=== PATIENT | male | born 1960 | race Caucasian/White ===

== ENCOUNTER 2020-06-12 06:33 | Inpatient (IN) | payer OTHER ==
[2020-06-05 15:08] LABS: BASOPHILS # (AUTO) 0.1 X10'3 (0-0.2); BASOPHILS % (AUTO) 1.1 % (0-1); EOSINOPHILS # (AUTO) 0.3 X10'3 (0-0.9); EOSINOPHILS % (AUTO) 2.7 % (0-6); LYMPHOCYTES # (AUTO) 2.2 X10'3 (1.1-4.8); LYMPHOCYTES % (AUTO) 22.2 % (21-51); MEAN CORPUSCULAR HEMOGLOBIN 32.5 PG (27.0-31.0); MEAN CORPUSCULAR HGB CONC 32.7 g/dL (33.0-36.5); MEAN CORPUSCULAR VOLUME 99.3 FL (78-98); MEAN PLATELET VOLUME 8.4 FL (7.4-10.4); MONOCYTES # (AUTO) 0.6 X10'3 (0-0.9); MONOCYTES % (AUTO) 6.4 % (2-12); NEUTROPHILS # (AUTO) 6.6 X10'3 (1.8-7.7); NEUTROPHILS % (AUTO) 67.6 % (42-75); PRE OP HEMATOCRIT 38.2 % (42.0-52.0); PRE OP HEMOGLOBIN 12.5 g/dL (14.0-17.9); PRE OP PLATELET COUNT 311 X10'3 (140-440); RED BLOOD COUNT 3.85 X10'6 (4.70-6.10); RED CELL DISTRIBUTION WIDTH 15.7 % (11.5-14.5)
[2020-06-05 15:22] LABS: ALKALINE PHOSPHATASE 58 IU/L (46-116); BLOOD UREA NITROGEN 38 MG/DL (7-18); BUN/CREATININE RATIO 27.5 (5.4-32.0); CALCIUM 8.7 MG/DL (8.5-10.1); CHLORIDE 108 MMOL/L (99-107); CREATININE 1.38 MG/DL (0.60-1.10); PRE OP ALT 16 U/L (30-65); PRE OP ANION GAP 11 (8-16); PRE OP AST 11 U/L (10-37); PRE OP BILIRUB, TOTAL 0.3 MG/DL (0.0-1.0); PRE OP GLUCOSE 123 MG/DL (70-104); PRE OP SODIUM 143 MMOL/L (135-145); TOTAL CARBON DIOXIDE 24.2 MMOL/L (24-32); TOTAL PROTEIN 7.9 G/DL (6.4-8.2); eGFR 53 ML/MIN
[2020-06-12] VITALS (11 sets, daily range): BP systolic 117–176; BP diastolic 52–94
[~2020-06-12] VITALS: Ht 180.3 cm; Wt 151.0 kg
[~2020-06-12 06:33] MED LIST: ACET-2119 PO; ALLO100T PO; AMLO10TA13 PO; CHLO25TA10 PO; LOSA50TA3 PO; PHEN1CPM4 PO; SIMV-42 PO; albuterol 2.5 MG/3 ML nebule NEB ONE; ceFAZolin/D5W- 1GM premix 50 ML IV ONE; cefazolin/dext.iso 2gm/100ml 100 ML IV ONE; famotidine 20mg tablet PO ONE; ringers solution, lacted 1,000 ML IV SCH; tranexamic acid 650mg tablet PO ONE; vancomycin 1,500 MG in NS 300ml IV soln IV ONE
--- NOTE | 2020-06-12 07:28 | NUR ---
VANCO WONT SCAN
[2020-06-12] MEDS ORDERED: ketorolac trometh. 30mg/ml inj. ONE (10:23)
[2020-06-12] MEDS ORDERED: ROPIVAcaine 0.5% (5mg/ml) 30ml vial ONE ×2 (10:23→10:40)
[2020-06-12] MEDS ORDERED: sevoflurane 250ml liquid IH ONE (10:37)
[2020-06-12] MEDS ORDERED: rocuronium 10mg/ml inj IV ONE (10:37)
[2020-06-12] MEDS ORDERED: fentaNYL/PF 50MCG/1 ML 2ML syringe ONE (10:39)
[2020-06-12] MEDS ORDERED: MIDAZolam 1 MG/ML 5ML VIAL ONE (10:40)
[2020-06-12] MEDS ORDERED: propofol inj 20 ML IV ONE (10:40)
[2020-06-12] MEDS ORDERED: ROPIVAcaine 0.2% (10 MG/5 ML) BOLUS INJECTION INTERSCALE PRN (12:05)
[2020-06-12] MEDS ORDERED: ringers solution, lacted 1,000 ML IV SCH (12:05)
[2020-06-12] MEDS ORDERED: ROPIVAcaine 0.2%/PF PUMP/bolus 545 ML INTERSCALE SCH (12:05)
[2020-06-12] MEDS ORDERED: ondansetron/PF 4mg/2ml inj IV PRN ×2 (12:05→13:10)
[2020-06-12] MEDS ORDERED: morphine 4 MG/ML inj SYRINge IV PRN (12:05)
[2020-06-12] MEDS ORDERED: meperidine/PF 25mg/ml syringe IV PRN ×3 (12:05)
[2020-06-12] MEDS ORDERED: morphine 2 MG/ML inj. syringe IV PRN (12:05)
[2020-06-12] MEDS ORDERED: proCHLORperazine 10 MG/2 ml inj IV PRN (12:05)
[2020-06-12] MEDS ORDERED: glycopyrrolate 0.2mg/ml inj ONE (12:47)
[2020-06-12] MEDS ORDERED: neostigmine methylsulfate 1 MG/ML 10ml vial ONE (12:47)
--- NOTE | 2020-06-12 13:00 | NUR ---
ADMITTED TO PACU FROM OR ACCOMPANIED BY ANESTHESIA. INTIAL PHYSICAL ASSESSMENT DONE AND RECORDED. REPORT RECEIVED FROM ANESTHESIA.
[2020-06-12] MEDS ORDERED: diphenhydrAMINE 25mg capsule PO PRN ×2 (13:10)
[2020-06-12] MEDS ORDERED: HYDROmorphone inj. 0.5 MG/0.5 ML DISP.SYRIN IV PRN (13:10)
[2020-06-12] MEDS ORDERED: oxyCODONE IR 5mg (immed. release) tablet PO PRN (13:10)
[2020-06-12] MEDS: potassium cl 20mEq in 1/2 NS 1,000 ML IV SCH ×2 (13:10→20:25)
[2020-06-12] MEDS ORDERED: acetaminophen 325mg tablet PO PRN (13:10)
[2020-06-12] MEDS ORDERED: bisacodyl 10mg suppository rectal RC PRN (13:10)
[2020-06-12] MEDS ORDERED: HYDROmorphone 1 mg/ml syringe IV PRN (13:10)
[2020-06-12] MEDS ORDERED: magnesium hydroxide 30ml (MOM) UD suspension PO PRN (13:10)
--- NOTE | 2020-06-12 14:00 | NUR ---
PACU DISCHARGE CRITERIA MET, REPORT GIVEN TO FLOOR. DENIES PAIN OR DISCOMFORT, TRANSFERRED TO ROOM IN STABLE GOOD CONDITION.
--- NOTE | 2020-06-12 14:12 | NUR ---
On the unit from OR
[2020-06-12] MEDS: acetaminophen 325mg tablet PO SCH ×2 (14:23→20:25)
[2020-06-12] MEDS: ceFAZolin/D5W- 1GM premix 50 ML IV SCH (16:01)
--- NOTE | 2020-06-12 18:19 | NUR ---
Problems reprioritized. Patient report given, questions answered & plan of care reviewed with Ivett LANE.
[2020-06-12] MEDS ORDERED: vancomycin/NS 1 GM ADD-VANTAGE 250 ML IV SCH (20:00)
[2020-06-12] MEDS ORDERED: benzocaine/menthol oral lozeng 1 EACH BOX MM PRN (20:40)
[2020-06-12] MEDS ORDERED: atorvastatin 10mg tablet PO SCH (21:00)
[2020-06-12] MEDS ORDERED: allopurinol 100mg tablet PO SCH (21:00)
[2020-06-12] MEDS ORDERED: sennosides 8.6mg tablet PO SCH (21:00)
[2020-06-13] MEDS: acetaminophen 325mg tablet PO SCH ×3 (01:24→15:05)
[2020-06-13] MEDS: oxyCODONE IR 5mg (immed. release) tablet PO PRN ×3 (01:24→13:09)
[2020-06-13] MEDS: potassium cl 20mEq in 1/2 NS 1,000 ML IV SCH ×2 (01:25→13:10)
[2020-06-13] MEDS: ceFAZolin/D5W- 1GM premix 50 ML IV SCH (01:25)
[2020-06-13 02:26] VITALS: BP 161/77
[2020-06-13 06:00] VITALS: BP 139/60
--- NOTE | 2020-06-13 06:34 | NUR ---
Patient in room ORTHO 4010B. I have received report from DOMINGO Root and had the opportunity to ask questions and assume patient care.
--- NOTE | 2020-06-13 07:47 | NUR ---
barcode did not scan into [email or web address] checked medication prior to administration
[2020-06-13] MEDS ORDERED: PHENTERMINE PO SCH (08:00)
[2020-06-13] MEDS ORDERED: losartan 50mg tablet PO SCH (08:00)
[2020-06-13] MEDS ORDERED: TOPIRAMATE PO SCH (08:00)
[2020-06-13] MEDS ORDERED: chlorthalidone 25mg tablet PO SCH (08:00)
[2020-06-13] MEDS ORDERED: amLODIPine 5mg tablet PO SCH (08:00)
[2020-06-13] MEDS ORDERED: aspirin 325mg tablet PO SCH (08:30)
[2020-06-13 09:45] LABS: BASOPHILS # (AUTO) 0.1 X10'3 (0-0.2); BASOPHILS % (AUTO) 0.8 % (0-1); EOSINOPHILS # (AUTO) 0.2 X10'3 (0-0.9); EOSINOPHILS % (AUTO) 2.2 % (0-6); HEMATOCRIT 36.7 % (42.0-52.0); LYMPHOCYTES # (AUTO) 1.6 X10'3 (1.1-4.8); LYMPHOCYTES % (AUTO) 15.9 % (21-51); MEAN CORPUSCULAR HEMOGLOBIN 32.6 PG (27.0-31.0); MEAN CORPUSCULAR HGB CONC 32.8 g/dL (33.0-36.5); MEAN CORPUSCULAR VOLUME 99.5 FL (78-98); MEAN PLATELET VOLUME 8.4 FL (7.4-10.4); MONOCYTES # (AUTO) 0.5 X10'3 (0-0.9); MONOCYTES % (AUTO) 4.9 % (2-12); NEUTROPHILS # (AUTO) 7.6 X10'3 (1.8-7.7); NEUTROPHILS % (AUTO) 76.2 % (42-75); PLATELET COUNT 213 X10'3 (140-440); RED BLOOD COUNT 3.69 X10'6 (4.70-6.10); RED CELL DISTRIBUTION WIDTH 15.6 % (11.5-14.5)
[2020-06-13 09:54] LABS: ANION GAP 9 (8-16); CHLORIDE 104 MMOL/L (99-107); POTASSIUM 4.1 MMOL/L (3.5-5.1); SODIUM 138 MMOL/L (135-145); TOTAL CARBON DIOXIDE 25.3 MMOL/L (24-32)
[2020-06-13 10:00] VITALS: BP 116/44
[2020-06-13] MEDS ORDERED: ASPI-1 PO (11:22)
--- NOTE | 2020-06-13 14:04 | NUR ---
Joint consult: Pt s/p reverse right TSA. Currently on a CHO controlled diet and eating well with documented 100% PO intake. Pt with active discharge orders, no nutrition intervention implemented at this time. Will continue to follow and monitor need for nutrition intervention if pt does not discharge. Addendum: 06/13/20 at [address] Amended: Links added.
--- NOTE | 2020-06-13 15:50 | NUR ---
DC INSTRUCTIONS GIVEN, QUESTIONS ANSWERED. IV REMOVED, CANULA INTACT, NO COMPLICATIONS. ASSISTED PT WITH DRESSING GATHERED BELONGINGS. WHEELED PT DOWN TO PRIVATE VEHICLE IN STABLE CONDITION
[2020-06-14] MEDS ORDERED: acetaminophen 325mg tablet PO PRN (13:10)
--- NOTE | 2020-06-14 14:02 | NUR ---
CASE MANAGEMENT DISCHARGE FOLLOW UP: T/c to pt, no answer, left message requesting callback. Addendum: 06/14/20 at 1520 by Raquel Hair RN [id number] Spoke with pt via telephone. Reports that he is doing pretty good, states that pain is well controlled with pain medication and cool packs; denies CP, SOB, fever/chills, dizziness. Verbalizes understanding of s/sx requiring further evaluation/emergent assistance. Verbalizes understanding of medications. Verbalizes compliance with MD discharge instructions. Verbalizes understanding of the importance in making/keeping follow-up appointments, has post-op appointment scheduled with surgeon. States no further questions/concerns at this time.
== END 2020-06-13 15:00 | disposition home or self-care (01) | DRG 483 ==
LOC: PAS IN 06:33 → UNDOADMIN 06:33 → PAS IN 13:07 → ORTHO 4S 14:05 → UNDODISIN 06-13 15:00
PROVIDERS: ADMIT Orthopaedic Surgery; ATTEND Orthopaedic Surgery
PROC: 0LS30ZZ Reposition Right Upper Arm Tendon, Open Approach (ICD-10-PCS; 2020-06-12)
PROC: 3E0T3BZ Introduction of Anesthetic Agent into Peripheral Nerves and Plexi, Percutaneous Approach (ICD-10-PCS; 2020-06-12)
PROC: 0RRJ00Z Replacement of Right Shoulder Joint with Reverse Ball and Socket Synthetic Substitute, Open Approach (ICD-10-PCS; principal; 2020-06-12 10:37)
DX: M19.011 Primary osteoarthritis, right shoulder (principal); Z68.43 Body mass index [BMI] 50.0-59.9, adult; D50.0 Iron deficiency anemia secondary to blood loss (chronic); E66.01 Morbid (severe) obesity due to excess calories; M75.121 Complete rotator cuff tear or rupture of right shoulder, not specified as traumatic; M75.21 Bicipital tendinitis, right shoulder; Z88.1 Allergy status to other antibiotic agents; Z88.8 Allergy status to other drugs, medicaments and biological substances
CPT/HCPCS: 36415; 80051; 80053; 82948; 85025; 87081; 97110; 97161; 97530; 97535; A4565; A4618; A7000; C1776; G0378; J0690; J1885; J2250; J2704; J2710; J2795; J3010; J3370; J3480; J3490; J7040; J7120; U0003

== ENCOUNTER 2020-08-03 16:26 | Emergency (ER) | payer OTHER ==
[~2020-08-03] VITALS: Ht 180.3 cm; Wt 111.2 kg
[~2020-08-03 16:26] MED LIST changes: -albuterol 2.5 MG/3 ML nebule NEB ONE; -ceFAZolin/D5W- 1GM premix 50 ML IV ONE; -cefazolin/dext.iso 2gm/100ml 100 ML IV ONE; -famotidine 20mg tablet PO ONE; -ringers solution, lacted 1,000 ML IV SCH; -tranexamic acid 650mg tablet PO ONE; -vancomycin 1,500 MG in NS 300ml IV soln IV ONE
[2020-08-03 21:42] LABS: BASOPHILS # (AUTO) 0.1 X10'3 (0-0.2); BASOPHILS % (AUTO) 0.6 % (0-1); EOSINOPHILS # (AUTO) 0.4 X10'3 (0-0.9); EOSINOPHILS % (AUTO) 3.7 % (0-6); HEMATOCRIT 37.1 % (42.0-52.0); HEMOGLOBIN 12.4 g/dl (14.0-17.9); LYMPHOCYTES % (AUTO) 19.8 % (21-51); MEAN CORPUSCULAR HEMOGLOBIN 32.9 PG (27.0-31.0); MEAN CORPUSCULAR HGB CONC 33.3 g/dL (33.0-36.5); MEAN CORPUSCULAR VOLUME 98.8 FL (78-98); MEAN PLATELET VOLUME 7.7 FL (7.4-10.4); MONOCYTES # (AUTO) 0.5 X10'3 (0-0.9); MONOCYTES % (AUTO) 5.2 % (2-12); NEUTROPHILS # (AUTO) 7.3 X10'3 (1.8-7.7); NEUTROPHILS % (AUTO) 70.7 % (42-75); PLATELET COUNT 311 X10'3 (140-440); RED BLOOD COUNT 3.76 X10'6 (4.70-6.10); RED CELL DISTRIBUTION WIDTH 15.9 % (11.5-14.5); WHITE BLOOD COUNT 10.3 X10'3 (4.5-11.0)
[2020-08-03 22:00] LABS: ALANINE AMINOTRANSFERASE 21 U/L (12-78); ALKALINE PHOSPHATASE 78 IU/L (46-116); ANION GAP 11 (8-16); ASPARTATE AMINO TRANSFERASE 11 U/L (10-37); BILIRUBIN,TOTAL 0.5 MG/DL (0.1-1.0); BLOOD UREA NITROGEN 22 MG/DL (7-18); BUN/CREATININE RATIO 13.4 (5.4-32.0); CALCIUM 8.8 MG/DL (8.5-10.1); CHLORIDE 110 MMOL/L (99-107); CREATININE 1.64 MG/DL (0.60-1.10); GLUCOSE 126 MG/DL (70-104); POTASSIUM 4.1 MMOL/L (3.5-5.1); SODIUM 145 MMOL/L (135-145); TOTAL CARBON DIOXIDE 23.8 MMOL/L (24-32); eGFR 43 ML/MIN
--- NOTE | 2020-08-03 23:35 | NUR ---
Swelling and erythema to right, 2nd toe
[2020-08-04] MEDS ORDERED: levoFLOXACIN-Levaquin 500mg/D5 100 ML IV ONE (00:35)
[2020-08-04] MEDS ORDERED: LEVO500T89 PO (01:23)
[2020-08-04] MEDS ORDERED: DOXY100C76 PO (01:23)
[2020-08-04 01:44] VITALS: BP 146/81
== END 2020-08-04 02:11 | disposition home or self-care (01) ==
LOC: ER 16:26
DX: L97.512 Non-pressure chronic ulcer of other part of right foot with fat layer exposed (principal); L03.031 Cellulitis of right toe; E11.9 Type 2 diabetes mellitus without complications; F17.200 Nicotine dependence, unspecified, uncomplicated; Z72.89 Other problems related to lifestyle; Z88.1 Allergy status to other antibiotic agents; Z88.8 Allergy status to other drugs, medicaments and biological substances; Z79.2 Long term (current) use of antibiotics; Z79.899 Other long term (current) drug therapy
CPT/HCPCS: 36415; 73660; 80053; 85025; 85651; 96365; 99284; J1956

== ENCOUNTER 2021-10-08 10:00 | Inpatient (IN) | payer OTHER ==
[~2021-10-08] VITALS: Ht 180.3 cm; Wt 139.0 kg
[~2021-10-08 10:00] MED LIST changes: -ACET-2119 PO; -CHLO25TA10 PO; -PHEN1CPM4 PO; -SIMV-42 PO
[2021-10-17] MEDS ORDERED: SEMA1PEN3 SQ (10:30)
[2021-10-17] MEDS ORDERED: MULT-1085 PO (10:30)
[2021-10-17] MEDS ORDERED: ATOR20TA66 PO (10:30)
[2021-10-17] MEDS ORDERED: TOPI25TA15 PO (10:30)
[2021-10-17 11:13] LABS: BASOPHILS # (AUTO) 0.1 X10'3 (0-0.2); BASOPHILS % (AUTO) 0.9 % (0-1); EOSINOPHILS # (AUTO) 0.5 X10'3 (0-0.9); EOSINOPHILS % (AUTO) 4.7 % (0-6); LYMPHOCYTES # (AUTO) 2.3 X10'3 (1.1-4.8); LYMPHOCYTES % (AUTO) 23.7 % (21-51); MEAN CORPUSCULAR HEMOGLOBIN 32.1 PG (27.0-31.0); MEAN CORPUSCULAR HGB CONC 33.6 g/dL (33.0-36.5); MEAN CORPUSCULAR VOLUME 95.5 FL (78-98); MEAN PLATELET VOLUME 7.6 FL (7.4-10.4); MONOCYTES # (AUTO) 0.4 X10'3 (0-0.9); MONOCYTES % (AUTO) 4.3 % (2-12); NEUTROPHILS # (AUTO) 6.4 X10'3 (1.8-7.7); NEUTROPHILS % (AUTO) 66.4 % (42-75); PRE OP HEMATOCRIT 37.6 % (42.0-52.0); PRE OP HEMOGLOBIN 12.6 g/dL (14.0-17.9); PRE OP PLATELET COUNT 262 X10'3 (140-440); RED BLOOD COUNT 3.94 X10'6 (4.70-6.10); RED CELL DISTRIBUTION WIDTH 15.2 % (11.5-14.5)
[2021-10-17 11:19] LABS: HEMOGLOBIN A1C 5.4 % (4.5-6.2)
[2021-10-17 11:28] LABS: ALBUMIN 4.1 G/DL (3.4-5.0); ALBUMIN/GLOBULIN RATIO 1.1 (1.1-1.5); ALKALINE PHOSPHATASE 61 IU/L (46-116); BLOOD UREA NITROGEN 41 MG/DL (7-18); BUN/CREATININE RATIO 24.3 (5.4-32.0); CALCIUM 8.5 MG/DL (8.5-10.1); CHLORIDE 109 MMOL/L (99-107); CREATININE 1.69 MG/DL (0.60-1.10); PRE OP ALT 21 U/L (30-65); PRE OP ANION GAP 13 (8-16); PRE OP AST 14 U/L (10-37); PRE OP BILIRUB, TOTAL 0.3 MG/DL (0.0-1.0); PRE OP GLUCOSE 96 MG/DL (70-104); PRE OP POTASSIUM 3.8 MMOL/L (3.4-5.1); PRE OP SODIUM 143 MMOL/L (135-145); TOTAL CARBON DIOXIDE 21.2 MMOL/L (24-32); TOTAL PROTEIN 7.7 G/DL (6.4-8.2); eGFR 41 ML/MIN
[2021-10-19] MEDS ORDERED: IBUP-24 PO (11:06)
[2021-10-22] VITALS (21 sets, daily range): BP systolic 107–191; BP diastolic 28–91
[2021-10-22] MEDS ORDERED: ringers solution, lacted 1,000 ML IV SCH ×2 (05:00→15:35)
[2021-10-22] MEDS ORDERED: tranexamic acid 650mg tablet PO ONE (05:30)
[2021-10-22] MEDS ORDERED: famotidine 20mg tablet PO ONE (05:30)
[2021-10-22] MEDS ORDERED: ceFAZolin inj. 2,000 MG in dextrose 5%-water 100 ML IV ONE (05:30)
[2021-10-22] MEDS ORDERED: vancomycin 1,500 MG in NS 300ml IV soln IV ONE (05:30)
[2021-10-22] MEDS ORDERED: ROPIVAcaine 0.5% (5mg/ml) 30ml vial ONE ×2 (13:23→16:45)
[2021-10-22] MEDS ORDERED: ketorolac trometh. 30mg/ml inj. ONE (13:23)
[2021-10-22] MEDS ORDERED: cloNIDine hcl/PF 100mcg/ml inj ONE (14:46)
[2021-10-22] MEDS ORDERED: tetracaine 1% (10mg/ml) pres. free inj. ONE (14:59)
--- NOTE | 2021-10-22 15:00 | NUR ---
CSM INTACT. PEDAL PULSES MARKED WITH AN "X". MUPIROCIN NOT GIVEN TO PT. Addendum: 10/22/21 at 1505 by Medina Coto RN, RN Amended: Links added.
[2021-10-22] MEDS ORDERED: fentaNYL/PF 50MCG/1 ML 2ML syringe ONE (15:13)
--- NOTE | 2021-10-22 15:15 | NUR ---
PT BELONGINGS TAKEN TO RECOVERY. IN THOSE ITEMS WAS A BLACK FRONT WHEEL WALKER WITH SEAT. PT'S MEDICATIONS TAKEN TO THE PHARMACY.
[2021-10-22] MEDS ORDERED: MIDAZolam 1 MG/ML 5ML VIAL ONE (15:30)
[2021-10-22] MEDS ORDERED: ondansetron/PF 4mg/2ml inj IV PRN ×2 (15:35→17:30)
[2021-10-22] MEDS ORDERED: proCHLORperazine 10 MG/2 ml inj IV PRN (15:35)
[2021-10-22] MEDS ORDERED: morphine 2 MG/ML inj. syringe IV PRN (15:35)
[2021-10-22] MEDS ORDERED: meperidine/PF 25mg/ml syringe IV PRN ×3 (15:35)
[2021-10-22] MEDS ORDERED: morphine 4 MG/ML inj SYRINge IV PRN (15:35)
[2021-10-22] MEDS ORDERED: ROPIVAcaine 0.5% (5mg/ml) 30ml vial IJ ONE (16:30)
[2021-10-22] MEDS ORDERED: diphenhydrAMINE 50 mg/ml inj ONE ×2 (16:45→17:12)
[2021-10-22] MEDS ORDERED: propofol inj 40 ML IV ONE (16:45)
[2021-10-22] MEDS ORDERED: dexamethasone sod phosphate 4mg/ml inj. ONE (16:45)
[2021-10-22] MEDS ORDERED: acetaminophen 1,000mg/100ml IV 100 ML IV ONE (16:59)
--- NOTE | 2021-10-22 17:20 | NUR ---
Received from OR via HOSPITAL BED, accompanied by Anesthesiologist DR SOLIS and report given by Anesthesiolgist. PT IS GROGGY BUT RESPONDS TO VERBAL STIMULI. PT PLACED ON BEDSIDE MONITOR, VSS. PT IS IN SR WITH RATE IN LOW 60'S. PT CAME OUT ON RA AND TOLLERATING WELL, O2 SAT > 98%. PT HAS 20G PIV TO LT FA WITH LR INFUSING @100ML/HR ORDERED. PT HAS DRSG TO RT KNEE WITH WRAP IN PLACE WELL PODWER ICE PACK. IT IS CDI. PT HAS DOPPLER PULSES TO BILAT DORSALIS PEDIS WELL POST TIB. PT HAS KAUR IN PLACE WITH STRAW COLORED URINE DRAINING TO GRAVITY. PT DENIES PAIN AT THIS TIME. WILL CONTINUE TO ASSESS.
[2021-10-22] MEDS ORDERED: oxyCODONE IR 5mg (immed. release) tablet PO PRN (17:30)
[2021-10-22] MEDS ORDERED: magnesium hydroxide 30ml (MOM) UD suspension PO PRN (17:30)
[2021-10-22] MEDS ORDERED: HYDROcodone/acetaminophen 10/325mg tab PO PRN (17:30)
[2021-10-22] MEDS ORDERED: HYDROmorphone 1 mg/ml syringe IV PRN (17:30)
[2021-10-22] MEDS ORDERED: diphenhydrAMINE 25mg capsule PO PRN ×2 (17:30)
[2021-10-22] MEDS ORDERED: bisacodyl 10mg suppository rectal RC PRN (17:30)
[2021-10-22] MEDS ORDERED: HYDROmorphone inj. 0.5 MG/0.5 ML DISP.SYRIN IV PRN (17:30)
[2021-10-22] MEDS ORDERED: naloxone 0.4 mg/ml inj IV PRN (17:30)
[2021-10-22] MEDS ORDERED: acetaminophen 325mg tablet PO PRN (17:30)
--- NOTE | 2021-10-22 19:00 | NUR ---
Received report from DOMINGO Neal in Recovery. Questions asked and answered. Current vitals assessed. Pt coming to the floor in 15mins.
--- NOTE | 2021-10-22 19:04 | NUR ---
CARE OF PATIENT AND REPORT HAS BEEN CALLED. ALL QUESTIONS ANSWERED TO ACCEPTING RN. PATIENT HAS MET ALL CRITERIA FOR TRANSFER TO THE ORTHO FLOOR. VSS. DRESSINGS INTACT. BED LOW, CALL LIGHT PRESENT AND 2 RAILS UP. ELPIDIO RN PRESENT TO ACCEPT
[2021-10-22] MEDS ORDERED: vancomycin/NS 1 GM ADD-VANTAGE 250 ML IV SCH (20:00)
[2021-10-22] MEDS ORDERED: atorvastatin 20mg tablet PO SCH (21:00)
[2021-10-22] MEDS ORDERED: amLODIPine 5mg tablet PO SCH (21:00)
[2021-10-22] MEDS ORDERED: allopurinol 100mg tablet PO SCH (21:00)
[2021-10-22] MEDS ORDERED: sennosides 8.6mg tablet PO SCH (21:00)
[2021-10-22] MEDS: acetaminophen 325mg tablet PO SCH (21:10)
[2021-10-22] MEDS: ibuprofen 200mg tablet PO SCH (21:11)
[2021-10-22] MEDS: topiramate 25mg tablet PO SCH (21:13)
[2021-10-22] MEDS: potassium cl 20mEq in 1/2 NS 1,000 ML IV SCH (21:15)
[2021-10-22] MEDS: oxyCODONE IR 5mg (immed. release) tablet PO PRN (21:25)
[2021-10-23] MEDS: ceFAZolin/D5W- 1GM premix 50 ML IV SCH ×2 (00:10→08:02)
[2021-10-23] MEDS: HYDROcodone/acetaminophen 10/325mg tab PO PRN ×2 (00:13→04:53)
[2021-10-23] MEDS: potassium cl 20mEq in 1/2 NS 1,000 ML IV SCH ×2 (01:30→09:30)
[2021-10-23] MEDS: acetaminophen 325mg tablet PO SCH ×2 (01:40→08:01)
[2021-10-23] MEDS: oxyCODONE IR 5mg (immed. release) tablet PO PRN ×2 (01:41→05:59)
[2021-10-23 02:00] VITALS: BP 120/57
[2021-10-23 06:17] LABS: BASOPHILS # (AUTO) 0.1 X10'3 (0-0.2); BASOPHILS % (AUTO) 0.5 % (0-1); EOSINOPHILS % (AUTO) 0.1 % (0-6); HEMATOCRIT 35.5 % (42.0-52.0); HEMOGLOBIN 11.5 g/dl (14.0-17.9); LYMPHOCYTES # (AUTO) 0.9 X10'3 (1.1-4.8); LYMPHOCYTES % (AUTO) 8.2 % (21-51); MEAN CORPUSCULAR HEMOGLOBIN 31.1 PG (27.0-31.0); MEAN CORPUSCULAR HGB CONC 32.4 g/dL (33.0-36.5); MEAN CORPUSCULAR VOLUME 95.9 FL (78-98); MEAN PLATELET VOLUME 7.9 FL (7.4-10.4); MONOCYTES # (AUTO) 0.4 X10'3 (0-0.9); MONOCYTES % (AUTO) 3.5 % (2-12); NEUTROPHILS % (AUTO) 87.7 % (42-75); PLATELET COUNT 254 X10'3 (140-440); WHITE BLOOD COUNT 11.4 X10'3 (4.5-11.0)
[2021-10-23 06:24] LABS: ANION GAP 7 (8-16); CHLORIDE 108 MMOL/L (99-107); POTASSIUM 4.7 MMOL/L (3.5-5.1); SODIUM 138 MMOL/L (135-145); TOTAL CARBON DIOXIDE 22.7 MMOL/L (24-32)
[2021-10-23 07:40] VITALS: BP 110/69
[2021-10-23] MEDS ORDERED: losartan 50mg tablet PO SCH (08:00)
[2021-10-23] MEDS ORDERED: multivitamins, therapeutics tablet PO SCH (08:00)
[2021-10-23] MEDS: topiramate 25mg tablet PO SCH (08:02)
[2021-10-23] MEDS: ibuprofen 200mg tablet PO SCH (08:02)
[2021-10-23] MEDS ORDERED: aspirin 325mg tablet PO SCH (08:30)
[2021-10-23 10:50] VITALS: BP 112/53
--- NOTE | 2021-10-23 11:01 | NUR ---
Joint surgery consult: Pt s/p R knee surgery this admit. Pt seen by BRIANNA for written/verbal high protein diet ed w/ RD contact information provided. BRIANNA encouraged pt to contact dietitian's office if further questions/concerns. Addendum: 10/23/21 at [address] Amended: Links added.
--- NOTE | 2021-10-23 14:00 | NUR ---
PATIENT STABLE AND APPROPRIATE FOR DISCHARGE HOME WITH FAMILY. IV REMOVED, ALL BELONGINGS TAKEN FROM ROOM. NO NEW RX. POWDER PACKS GIVEN TO PATIENT, DRESSING CDI. ALL DISCHARGE INSTRUCTIONS AND EDUCATION GIVEN AND REVIEWED WITH PATIENT, ALL QUESTIONS ANSWERED.
[2021-10-23] MEDS ORDERED: celeCOXIB 100mg capsule PO SCH (20:00)
[2021-10-24] MEDS ORDERED: Semaglutide (Ozempic) 1 MG SQ SCH (13:00)
[2021-10-24] MEDS ORDERED: acetaminophen 325mg tablet PO PRN (17:30)
== END 2021-10-23 14:08 | disposition home or self-care (01) | DRG 470 ==
LOC: PAS IN 10-22 12:02 → ORTHO 4S 10-22 19:44
PROVIDERS: ADMIT Orthopaedic Surgery; ATTEND Orthopaedic Surgery
PROC: 8E0YXBZ Computer Assisted Procedure of Lower Extremity (ICD-10-PCS; 2021-10-22)
PROC: 8E0Y0CZ Robotic Assisted Procedure of Lower Extremity, Open Approach (ICD-10-PCS; 2021-10-22)
PROC: 3E0T3BZ Introduction of Anesthetic Agent into Peripheral Nerves and Plexi, Percutaneous Approach (ICD-10-PCS; 2021-10-22)
PROC: 3E0T33Z Introduction of Anti-inflammatory into Peripheral Nerves and Plexi, Percutaneous Approach (ICD-10-PCS; 2021-10-22)
PROC: 0SRC0J9 Replacement of Right Knee Joint with Synthetic Substitute, Cemented, Open Approach (ICD-10-PCS; principal; 2021-10-22 14:59)
DX: M17.11 Unilateral primary osteoarthritis, right knee (principal); D62 Acute posthemorrhagic anemia; Z68.41 Body mass index [BMI] 40.0-44.9, adult; I10 Essential (primary) hypertension; E11.9 Type 2 diabetes mellitus without complications; E66.9 Obesity, unspecified; M10.9 Gout, unspecified; Z96.611 Presence of right artificial shoulder joint; Z88.8 Allergy status to other drugs, medicaments and biological substances; Z79.899 Other long term (current) drug therapy
CPT/HCPCS: 36415; 71046; 80051; 80053; 82948; 83036; 85025; 87081; 87811; 97110; 97116; 97162; 97530; A4215; A7000; C1713; C1758; C1776; G0378; J0131; J0690; J0735; J1100; J1200; J1885; J2250; J2704; J2795; J3010; J3370; J3480; J3490; J7040; J7060; J7120

== ENCOUNTER 2022-12-17 05:10 | Day surgery (SDC) | payer OTHER ==
[2022-12-10 11:32] LABS: BASOPHILS # (AUTO) 0.1 X10'3 (0-0.2); BASOPHILS % (AUTO) 0.8 % (0-1); EOSINOPHILS # (AUTO) 0.3 X10'3 (0-0.9); LYMPHOCYTES # (AUTO) 2.4 X10'3 (1.1-4.8); MEAN CORPUSCULAR HEMOGLOBIN 31.9 PG (27.0-31.0); MEAN CORPUSCULAR HGB CONC 32.9 g/dL (33.0-36.5); MEAN PLATELET VOLUME 7.8 FL (7.4-10.4); MONOCYTES # (AUTO) 0.4 X10'3 (0-0.9); MONOCYTES % (AUTO) 4.3 % (2-12); NEUTROPHILS # (AUTO) 5.8 X10'3 (1.8-7.7); NEUTROPHILS % (AUTO) 64.9 % (42-75); PRE OP HEMATOCRIT 35.8 % (42.0-52.0); PRE OP HEMOGLOBIN 11.8 g/dL (14.0-17.9); PRE OP PLATELET COUNT 250 X10'3 (140-440); PRE OP WHITE BLOOD COUNT 8.9 10'3 (4.8-10.8); RED BLOOD COUNT 3.69 X10'6 (4.70-6.10); RED CELL DISTRIBUTION WIDTH 16.6 % (11.5-14.5)
[2022-12-10 11:55] LABS: ALBUMIN 3.9 G/DL (3.4-5.0); ALBUMIN/GLOBULIN RATIO 1.1 (1.1-1.5); ALKALINE PHOSPHATASE 62 IU/L (46-116); CALCIUM 8.8 MG/DL (8.5-10.1); PRE OP ALT 22 U/L (30-65); PRE OP AST 13 U/L (10-37); PRE OP BILIRUB, TOTAL 0.3 MG/DL (0.0-1.0); TOTAL CARBON DIOXIDE 24.2 MMOL/L (24-32); TOTAL PROTEIN 7.3 G/DL (6.4-8.2)
[2022-12-10 12:09] LABS: BLOOD UREA NITROGEN 28 MG/DL (7-18); BUN/CREATININE RATIO 19.4 (10.0-20.0); CHLORIDE 107 MMOL/L (99-107); CREATININE 1.44 MG/DL (0.60-1.10); PRE OP ANION GAP 12 (8-16); PRE OP GLUCOSE 96 MG/DL (70-104); PRE OP POTASSIUM 4.1 MMOL/L (3.4-5.1); PRE OP SODIUM 143 MMOL/L (135-145); eGFR 50 ML/MIN
[2022-12-17] VITALS (26 sets, daily range): BP systolic 123–166; BP diastolic 59–92; PULSE 61–76; RESP 8–22; TEMP 98.3; O2SAT 93–99
[~2022-12-17] VITALS: Ht 180.3 cm; Wt 125.5 kg
[~2022-12-17 05:10] MED LIST changes: +ATOR20TA66 PO; +IBUP-24 PO; +LOSA-416 PO; -LOSA50TA3 PO; +MULT-1085 PO; +SEMA1PEN3 SQ; +TOPI25TA15 PO; +ringers solution, lacted 1,000 ML IV SCH
[2022-12-17] MEDS ORDERED: ceFAZolin inj. 3,000 MG in normal saline 100ml IV soln 100 ML IV ONE (05:30)
[2022-12-17] MEDS ORDERED: famotidine 20mg tablet PO ONE (05:30)
[2022-12-17] MEDS ORDERED: BUPIVAcaine/PF 2.5mg/ml (0.25%) 10ml vial ONE ×2 (06:57→08:23)
[2022-12-17] MEDS ORDERED: midazolam 1 mg/ML 2ml injection ONE (07:21)
[2022-12-17] MEDS ORDERED: fentaNYL/PF 50MCG/1 ML 2ML syringe ONE (07:21)
[2022-12-17] MEDS ORDERED: propofol 10mg/ml 20ml vial IV ONE (07:22)
[2022-12-17] MEDS ORDERED: hydrALAZINE 20mg/ml inj. IV PRN (07:25)
[2022-12-17] MEDS ORDERED: morphine 4 MG/ML inj SYRINge IV PRN (07:25)
[2022-12-17] MEDS ORDERED: labetalol 20mg/4ml (5mg/ml) syringe IV PRN (07:25)
[2022-12-17] MEDS ORDERED: ringers solution, lacted 1,000 ML IV SCH (07:25)
[2022-12-17] MEDS ORDERED: morphine 2 MG/ML inj. syringe IV PRN (07:25)
[2022-12-17] MEDS ORDERED: acetaminophen 1,000mg/100ml IV 100 ML IV PRN (07:25)
[2022-12-17] MEDS ORDERED: proCHLORperazine 10 MG/2 ml inj IV PRN (07:25)
[2022-12-17] MEDS ORDERED: ondansetron/PF 4mg/2ml inj IV PRN (07:25)
[2022-12-17] MEDS ORDERED: meperidine/PF 25mg/ml syringe IV PRN ×3 (07:25)
[2022-12-17] MEDS ORDERED: ketorolac tromethamine 15mg/ml inj. IV ONE (07:25)
[2022-12-17] MEDS ORDERED: LIDOcaine 0.5% (5mg/ml) 50ml vial ONE (07:47)
[2022-12-17] MEDS ORDERED: BUPIVAcaine/PF 2.5 mg/ml (0.25%) 30ml vial IJ ONE (08:00)
--- NOTE | 2022-12-17 08:42 | NUR ---
Received from OR via [facility] TO [facility] 7, accompanied by Anesthesiologist ROXANA and report given by Anesthesiologist. PT PRESENTS ON 10L VIA MASK, VSS. RIGHT ARM DRESSING CDI AND SLING IN PLACE. ICE APPLIED. PT DENIES PAIN AND NAUSEA AT THIS TIME. LR RUNNING THRU PIV.
[2022-12-17] MEDS ORDERED: HYDROcodone/acetaminophen 10/325mg tab PO PRN (08:50)
--- NOTE | 2022-12-17 09:40 | NUR ---
PT IS SITTING UP IN BED EATING CRACKER AND DRINKING APPLE JUICE
--- NOTE | 2022-12-17 10:30 | NUR ---
REV'D ALL D/C PPWK WITH PATIENT. ALL QUESTIONS, COMMENTS, AND CONCERNS WERE ANSWERED AT THIS TIME. D/C PPWK HAS BEEN SIGNED - PENDS PATIENT RIDE.
--- NOTE | 2022-12-17 12:14 | NUR ---
REPORT GIVEN TO DOMINGO BUTLER IN PAS. ALL QUESTIONS, COMMENTS, AND CONCERNS WERE ANSWERED AT THIS TIME. PATIENT WHEELED TO ROOM 244B ON [facility] WITH 2 BAGS OF PERSONAL BELONGINGS. PATIENT HAS CALL LIGHT WITHIN REACH. PRIMARY RN IN ROOM DURING TRANSFER.
--- NOTE | 2022-12-17 15:42 | NUR ---
PATIENT A&OX4, DENIES PAIN, V/S WNL, IV D/C, SCD OFF. I HAVE REVIEWED D/C INSTRUCTIONS WITH PATIENT AND HE HAS VERBALIZED UNDERSTANDING. PATIENT D/C HOME WITH ALL BELONGINGS AND FRIEND GAVE TRANSPORT.
--- NOTE | 2022-12-17 15:42 | NUR ---
DRESSING TO RUE CDI WITH SLING AND ICE.
== END 2022-12-17 15:42 | disposition home or self-care (01) ==
LOC: PAS 05:10
PROVIDERS: ATTEND Orthopaedic Surgery
DX: G56.21 Lesion of ulnar nerve, right upper limb (principal); G56.01 Carpal tunnel syndrome, right upper limb; Z79.899 Other long term (current) drug therapy; Z98.890 Other specified postprocedural states; Z88.1 Allergy status to other antibiotic agents; Z88.8 Allergy status to other drugs, medicaments and biological substances; Z87.891 Personal history of nicotine dependence; M10.9 Gout, unspecified; Z96.651 Presence of right artificial knee joint; E66.01 Morbid (severe) obesity due to excess calories
CPT/HCPCS: 36415; 64718; 64721; 80053; 82948; 85025; A6222; J0131; J0690; J1885; J2175; J2250; J3010; J3490; J7030; J7120; Z7506; Z7508; Z7512; A4215; A4565; A6449; A7000; J2704